=== PATIENT | female | born 1995 | race Caucasian/White ===

== ENCOUNTER 2017-01-18 19:03 | Emergency (ER) | payer OTHER ==
[~2017-01-18] VITALS: Ht 175.3 cm; Wt 81.0 kg
[~2017-01-18 19:03] MED LIST: LORT5TAB PO; Z.0.NO CURRENT MEDS; ZOFR4TAB3 SL
[2017-01-18 19:05] VITALS: BP 118/81; PULSE 61; RESP 14; TEMP 97.9; O2SAT 97
--- NOTE | 2017-01-18 19:36 | PD ---
HPI Chief Complaint: Head Injury Time Seen by Provider: 19:25 Travel History International Travel<30 days: No Contact w/Intl Traveler<30days: No Traveled to known affect area: No History of Present Illness HPI 21-year-old female complains of headache. Patient states that she was hit by a baseball on the right side of the forehead. Patient denies loss of consciousness. Patient complains of throbbing headache. Patient denies any visual change. Patient denies any neck pain. Patient denies any chest pain or shortness of breath. Patient denies abdominal pain. Patient denies any focal weakness or numbness of extremity. Family member states that patient does not have any change in mental status. Family member states that patient does not have any repetitive questioning or confusion. PFSH Past Medical History Diminished Hearing: No Immunizations Current: Yes Tetanus Vaccination: Unknown Influenza Vaccination: No ?: Not LMP: Now Social History Alcohol Use: No Tobacco Use: No Substance Use: No Allergies-Medications (Allergen,Severity, Reaction): Coded Allergies: No Known Allergies (Unverified , 01/18/17) Reported Meds & Prescriptions Reported Meds & Active Scripts Active No Active Prescriptions or Reported Medications Review of Systems General / Constitutional: No: Fever Eyes: No: Visual changes HENT: Positive: Headaches Cardiovascular: No: Chest Pain or Discomfort Respiratory: No: Shortness of Breath Gastrointestinal: No: Abdominal Pain Genitourinary: No: Dysuria Musculoskeletal: No: Pain Skin: No Rash Neurologic: No: Weakness Psychiatric: No: Depression Endocrine: No: Polydipsia Hematologic/Lymphatic: No: Easy Bruising Physical Exam Narrative GENERAL: Well-nourished, well-developed patient. SKIN: Warm and dry. HEAD: Normocephalic. Patient has mild soft tissue swelling tenderness right forehead. EYES: No scleral icterus. No injection or drainage. Pupils 3 mm equal reactive. NECK: Supple, trachea midline. No JVD or lymphadenopathy. CARDIOVASCULAR: Regular rate and rhythm without murmurs, gallops, or rubs. RESPIRATORY: Breath sounds equal bilaterally. No accessory muscle use. GASTROINTESTINAL: Abdomen soft, non-tender, nondistended. MUSCULOSKELETAL: No cyanosis, or edema. BACK: Nontender without obvious deformity. No CVA tenderness. Neurologic exam: Patient is awake and alert oriented 3. No obvious focal neurological deficit. Data Data Last Documented VS Vital Signs Date Time Temp Pulse Resp B/P Pulse Ox O2 Delivery O2 Flow Rate FiO2 01/18/17 19:16 60 18 99 Room Air 01/18/17 19:05 97.9 118/[address] Brain W/O Iv Contrast(Rout) (01/18/17 19:29) MDM Medical Decision Making Medical Screen Exam Complete: Yes Emergency Medical Condition: Yes Interpretation(s) [address] scan of brain negative acute pathology. Differential Diagnosis Differential diagnosis including contusion, concussion, skull fracture, intracranial hemorrhage. Narrative Course 21-year-old female with injury to right forehead from a baseball. Diagnosis Primary Impression: Closed head injury Qualified Code: S09.90XA - Closed head injury, initial encounter Patient Instructions: General Instructions Additional Instructions: Head trauma instructions given. Mobic as needed for headache. Follow-up with personal physician. Return if persistent problem or worse. No contact sports for 2 weeks. Med/Other Pt SpecificInfo: Prescription(s) given Scripts Acetaminophen-Codeine (Tylenol-Codeine #3)300-30 mg Tab1 Tab PO Q6HR PRN ( HEADACHE) #20 TAB Prov:Fantasma Henao MD 01/18/17 Meloxicam (Mobic)15 Mg Tab15 Mg PO DAILY #20 TAB Prov:Fantasma Henao MD 01/18/17 Disposition: 01 DISCHARGE HOME Condition: Stable Fantasma Henao MD Jan 18, 2017 19:36
--- NOTE | 2017-01-18 20:13 | RADHPO ---
EXAM DATE/TIME: 01/18/2017 19:52 [facility] COMPARISON: CT BRAIN W/O CONTRAST, March 10, 2012, 0:59. INDICATIONS : Trauma. Hit in head with baseball. RADIATION DOSE: 66.15 CTDIvol (mGy) MEDICAL HISTORY : None SURGICAL HISTORY : None. ENCOUNTER: Initial ACUITY: 1 day PAIN SCALE: 7/10 LOCATION: Right temporal TECHNIQUE: Multiple contiguous axial images were obtained of the head. Using automated exposure control and adj ustment of the mA and/or kV according to patient size, radiation dose was kept as low as reasonably a chievable to obtain optimal diagnostic quality images. FINDINGS: CEREBRUM: The ventricles are normal for age. No evidence of midline shift, mass lesion, hemorrhage or acute in farction. No extra-axial fluid collections are seen. POSTERIOR FOSSA: The cerebellum and brainstem are intact. The 4th ventricle is midline. The cerebellopontine angle i s unremarkable. EXTRACRANIAL: The visualized portion of the orbits is intact. SKULL: The calvaria is intact. No evidence of skull fracture. CONCLUSION: Normal examination. Khang Basilio MD on January 18, 2017 at 20:11 Board Certified Radiologist. This report was verified electronically.
[2017-01-18] MEDS ORDERED: MOBI15TA PO (20:18)
[2017-01-18] MEDS ORDERED: TYLETAB34 PO (20:18)
[2017-01-18 20:21] VITALS: BP 121/67; PULSE 67; RESP 18; O2SAT 100
== END 2017-01-18 20:32 | disposition home or self-care (01) ==
LOC: PHED 19:03
DX: S09.90XA Unspecified injury of head, initial encounter (principal); R51 Headache; W21.03XA Struck by baseball, initial encounter; Y99.8 Other external cause status
CPT/HCPCS: 70450